=== PATIENT | female | born 1980 | race Native Hawaiian/Other Pacific Islander ===

== ENCOUNTER 2017-11-22 10:52 | Emergency (ER) | payer OTHER ==
[2017-11-22 11:00] VITALS: BMI 29.2
[2017-11-22 11:02] VITALS: RESP 18; TEMP 98.2; O2SAT 100
--- NOTE | 2017-11-22 11:08 | ED PDOC ---
Arrival/HPI - General Chief Complaint: Lower Extremity Problem/Injury Time Seen by Provider: 11/22/17 11:02 Historian: Patient - History of Present Illness Narrative History of Present Illness (Text): 11/22/17 11:04 37yo female who present with left 2nd toe pain s/p trauma 3days ago. States she accidentally ran a stretcher over her second toe and ended with a small avulsed injury. states she cut it off, but came to ED for the mild persistent pain she gets with ambulation. Did not take any medication for the pain. Denies any other complaint. Past Medical History - Provider Review Nursing Documentation Reviewed: Yes Family/Social History - Physician Review Nursing Documentation Reviewed: Yes Family/Social History: Unknown Family HX Allergies/Home Meds Allergies/Adverse Reactions: Allergies hydrocodone Allergy (Verified 11/22/17 11:00) DIZZINESS Home Medications: Home Meds Medication Instructions Recorded Confirmed Levothyroxine Sodium [Levo-T] 50 mcg PO DAILY 11/22/17 11/22/17 Review of Systems - Physician Review All systems were reviewed & negative as marked: Yes - Review of Systems Constitutional: Normal Eyes: Normal ENT: Normal Respiratory: Normal Cardiovascular: Normal Gastrointestinal: Normal Genitourinary Female: Normal Musculoskeletal: Arthralgias (Left 2nd toe) Skin: Normal Neurological: Normal Endocrine: Normal Hemo/Lymphatic: Normal Psychiatric: Normal Physical Exam Vital Signs Reviewed: Yes Vital Signs Temp Pulse Resp BP Pulse Ox 11/22/17 13:15 98.2 F 82 18 153/82 H 100 11/22/17 11:02 98.2 F 72 18 155/91 H 100 Temperature: Afebrile Blood Pressure: Normal Pulse: Regular Respiratory Rate: Normal Appearance: Positive for: Well-Appearing, Non-Toxic, Comfortable Pain Distress: None Mental Status: Positive for: Alert and Oriented X 3 - Systems Exam Head: Present: Atraumatic, Normocephalic Pupils: Present: PERRL Extroacular Muscles: Present: EOMI Conjunctiva: Present: Normal Mouth: Present: Moist Mucous Membranes Neck: Present: Normal Range of Motion Respiratory/Chest: Present: Clear to Auscultation, Good Air Exchange. No: Respiratory Distress, Accessory Muscle Use Cardiovascular: Present: Regular Rate and Rhythm, Normal S1, S2. No: Murmurs Abdomen: No: Tenderness, Distention, Peritoneal Signs Back: Present: Normal Inspection Upper Extremity: Present: Normal Inspection. No: Cyanosis, Edema Lower Extremity: Present: Normal Inspection, NORMAL PULSES, Normal ROM (with pain on flexion), Tenderness (Left second toe), Swelling (Left 2nd toe), Neurovascularly Intact. No: Edema, Erythema (Ecchymosis of left 2nd toe) Neurological: Present: GCS=15, CN II-XII Intact, Speech Normal Skin: Present: Warm, Dry, Normal Color. 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 No Disposition/Present on Arrival - Present on Arrival Any Indicators Present on Arrival: No History of DVT/PE: No History of Uncontrolled Diabetes: No Urinary Catheter: No History of Decub. Ulcer: No History Surgical Site Infection Following: None - Disposition Have Diagnosis and Disposition been Completed?: Yes Diagnosis: Toe contusion Disposition: HOME/ ROUTINE Disposition Time: 12:50 Patient Plan: Discharge Condition: STABLE Discharge Instructions (ExitCare): Toe Injury Additional Instructions: Follow up with a Process Controls Technician Return to ED for any new or worsening symptoms Prescriptions: Ibuprofen [Motrin Tab] 600 mg PO Q6 #15 tab Referrals: Robert Arevalo DPM [[facility]] - Follow up with primary Forms: [employer] (Al[place]ian)
--- NOTE | 2017-11-22 12:41 | RAD ---
Date of service: 11/22/2017 PROCEDURE: Right Foot Radiographs. HISTORY: toe pain s/p trauma COMPARISON: None. FINDINGS: BONES: Normal. No fracture. JOINTS: Normal. SOFT TISSUES: Normal. OTHER FINDINGS: None. IMPRESSION: Normal right foot radiographs.
[2017-11-22 14:22] VITALS: BP 153/82; PULSE 82
== END 2017-11-22 13:15 | disposition home or self-care (01) ==
LOC: ED 10:52
DX: S90.121A Contusion of right lesser toe(s) without damage to nail, initial encounter (principal); W22.8XXA Striking against or struck by other objects, initial encounter; Y92.238 Other place in hospital as the place of occurrence of the external cause; Y99.0 Civilian activity done for income or pay

== ENCOUNTER 2018-06-15 10:46 | Outpatient (CLI) | payer OTHER | END 2018-06-15 10:47 | disposition home or self-care (01) | LOC: LAB 10:46 ==

== ENCOUNTER 2018-07-26 09:35 | Outpatient (CLI) | payer OTHER | END 2018-07-26 09:36 | disposition home or self-care (01) | LOC: LAB 09:35 ==